=== PATIENT | male | born 1945 | race Caucasian/White ===

== ENCOUNTER 2016-10-28 06:19 | Day surgery (SDC) | payer MEDICARE, BC ==
--- NOTE | 2016-10-14 13:01 | HP ---
HISTORY AND PHYSICAL: DATE OF ADMISSION/SURGERY: 10/28/16 DATE OF OFFICE VISIT: 10/14/16 CHIEF COMPLAINT: Blurring of vision, difficult driving at night. HISTORY OF PRESENT ILLNESS: This 71-year-old white male who has been diagnosed with bilateral cataracts with Dr. Fuad Hickey. He is scheduled at [facility] for extraction of right cataract under local anesthesia with monitored anesthesia care on October 28 and the left eye will be done on November 04. PAST MEDICAL HISTORY: The patient is under the care of Dr. Norm Krishna. He has a history of hypertension and hyperlipidemia. He is also followed by Dr. Shah and Dr. Lopze for prostate cancer, had surgery in 2007, robotic laparoscopic prostatectomy, and had a biochemical recurrence in 2013 and went under radiation treatment. CURRENT MEDICATIONS: 1. Lisinopril 40 mg daily. 2. Lipitor 20 mg one and a half tablets daily for a total dose of 30 mg. 3. Amlodipine 10 mg daily. 4. Metoprolol ER 50 mg one and a half tablets daily. 5. He also uses Viagra p.r.n. ALLERGIES: HYDROCHLOROTHIAZIDE caused a rash in the past. SOCIAL HISTORY: The patient lives in the [facility]. He is a former smoker 40 - pack year history, quit about 10 years ago. Alcohol, he classifies himself as a heavy drinker. He stopped about 2-1/2 weeks ago, currently seeing a counselor and he has joined [employer]. He works out at [employer] with a animal trainer about twice a week; otherwise, he is quite physically active. REVIEW OF SYSTEMS: He wears glasses, has decreased hearing. He says that ankle edema symptoms were only present dating back to April of last year and it is no longer an issue. He does have frequent urination with some incontinence leaking at times. He gets up 3 times a night to urinate. He has been followed by a senior compliance analyst for minor skin issues. The patient denies any dyspnea, cough, chest pain, palpitations or edema symptoms. FAMILY HISTORY: Mother - longevity, lived to over 100, she was healthy. Father had bipolar, long-term smoker, was on oxygen therapy and had a sudden at age 75, cause unknown. Brother - colon polyps, bladder cancer and prostate CA. PHYSICAL EXAMINATION GENERAL: This 71-year-old white male is alert, pleasant, and cooperative, no acute distress at the present time. VITAL SIGNS: Height 6 feet, weight 207. Blood pressure 136/72, pulse 64, regular. HEENT: Eyes not examined. Patient has bilateral hearing aids in place, removed for examination now. Teeth are in excellent repair, one molar is missing. Tongue in midline. Pharynx is clear. NECK: Supple. Good range of motion. No adenopathy. Thyroid benign. BACK: Normal curvature. No tenderness noted of the spine or CVA areas. LUNGS: Clear. HEART: Rhythm is regular. Apical pulse 64 beats per minute. No murmurs. EKG shows normal sinus rhythm within normal limits. ABDOMEN: Abdomen is flat. Active bowel sounds. Abdomen is soft, nontender. No obvious masses or organomegaly. EXTREMITIES: The patient ambulates independently. No assisting aids. Good range of motion of all 4 extremities. No edema. No cyanosis. No skin lesions noted. IMPRESSION: The patient is medically stable and cleared for his surgery with Dr. Fuad Hickey at the [facility] for bilateral cataracts. VLADIMIR SANDS NP CC: Fuad Hickey MD; [facility]* [id number]/[facility] #: [id number] MTDD
[~2016-10-28 06:19] MED LIST: Acetaminophen TAB* 325 MG PO PRN; Buffered Lidocaine 1% SYRIN* 5 ML/SYR SYRINGE INTRADERM ONE
[2016-10-28] MEDS ORDERED: Midazolam* 1 MG/ML 2 ML VIAL (2 MG) ONE (07:41)
[2016-10-28 08:19] VITALS: BP 130/77
--- NOTE | 2016-10-28 09:59 | OP ---
OPERATIVE NOTE: DATE OF OPERATION: 10/28/16 DATE OF : 41 SURGEON: Fuad Hickey MD PREOPERATIVE DIAGNOSIS: Cataract, right eye. POSTOPERATIVE DIAGNOSIS: Cataract, right eye. OPERATIVE PROCEDURE: Phacoemulsification, right eye with IOL. PROCEDURE: The patient was brought to the operating room after being given 1/2% Alcaine with epinep hrine drops in the preoperative area. The eye was prepped and draped in the usual sterile fashion. Sterile drape and eyelid speculum were placed. Again, topical 1/2% Alcaine with epinephrine was gi matthias. A paracentesis incision was made at the 9 o'clock position with the No.75 blade. Clear cornea incision 2.2 x 2.2-mm was created at the 12 o'clock position starting at the anterior limbus using the 2.2-mm keratome. The anterior chamber was irrigated with 0.4 mL of 1% non-preservative intracam eral lidocaine and filled with DisCoVisc. A capsulorrhexis was completed using the cystotome and joseph e Utrata forceps. Hydrodissection was performed with balanced salt solution. The lens nucleus was r emoved with the Phacoemulsification handpiece without incident. Cortex was removed with the irrigat ion-aspiration handpiece. The capsular bag was re-inflated using DisCoVisc and an [id number] implant was inserted with the shooter. The irrigation-aspiration handpiece was used to remove all residual DisCoVisc. The eye was refilled with balanced salt solution and the wound checked and found to be watertight. Topical Maxitrol drops were given. [id number]/[facility] #: [id number]
[2016-10-28] MEDS ORDERED: acetaZOLAMIDE TAB* 250 MG ONE (12:07)
[2016-10-28] MEDS ORDERED: Lidocaine 1% MPF* 2 ML VIAL ONE (12:07)
[2016-10-28] MEDS ORDERED: Lidocaine 2% EPI 1:200000 MPF* 20 ML VIAL ONE (12:07)
[2016-10-28] MEDS ORDERED: Proparacaine 0.5% OPHTH.SOL* 15 ML BTL ONE (12:07)
[2016-10-28] MEDS ORDERED: Cyclopentolate 1% OPTH.SOL* 2 ML BTL ONE (12:07)
[2016-10-28] MEDS ORDERED: Povidone Iodine 5% OPTH* 30 ML BTL ONE (12:07)
[2016-10-28] MEDS ORDERED: Neomycin/Polymy/Dex OPTH.SUSP* MAXITROL 0.1% 5 ML ONE (12:07)
[2016-10-28] MEDS ORDERED: Phenylephrine 2.5% OPTH.SOL* 2 ML BTL ONE (12:07)
[2016-10-28] MEDS ORDERED: Flurbiprofen 0.03% OPTH.SOL* 2.5 ML BTL ONE (12:07)
== END 2016-10-28 08:20 | disposition home or self-care (01) ==
LOC: OREAST 06:19
PROVIDERS: ATTEND Specialist
DX: H25.11 Age-related nuclear cataract, right eye (principal); I10 Essential (primary) hypertension; Z87.891 Personal history of nicotine dependence
CPT/HCPCS: A9270-GY; J2250; V2632

== ENCOUNTER 2016-11-04 07:17 | Day surgery (SDC) | payer MEDICARE, OTHER ==
[~2016-11-04 07:17] MED LIST changes: +Buffered Lidocaine 0.9% SYRIN* 5 ML/SYR SYRINGE INTRADERM ONE; +Buffered Lidocaine 0.9% SYRIN* 5 ML/SYR SYRINGE ONE; -Buffered Lidocaine 1% SYRIN* 5 ML/SYR SYRINGE INTRADERM ONE; +Cyclopentolate 1% OPTH.SOL* 2 ML BTL ONE; +Flurbiprofen 0.03% OPTH.SOL* 2.5 ML BTL ONE; +Lidocaine 1% MPF* 2 ML VIAL ONE; +Lidocaine 2% EPI 1:200000 MPF* 20 ML VIAL ONE; +Neomycin/Polymy/Dex OPTH.SUSP* MAXITROL 0.1% 5 ML ONE; +Phenylephrine 2.5% OPTH.SOL* 2 ML BTL ONE; +Povidone Iodine 5% OPTH* 30 ML BTL ONE; +Proparacaine 0.5% OPHTH.SOL* 15 ML BTL ONE; +acetaZOLAMIDE TAB* 250 MG ONE
[2016-11-04] MEDS ORDERED: Midazolam* 1 MG/ML 2 ML VIAL (2 MG) ONE ×2 (08:49→08:54)
[2016-11-04 09:25] VITALS: BP 119/71
--- NOTE | 2016-11-04 09:32 | OP ---
DATE OF OPERATION: 11/04/2016 [facility] DATE OF : 1945. SURGEON: Fuad Hickey M.D. PREOPERATIVE DIAGNOSIS: Cataract left eye. POSTOPERATIVE DIAGNOSIS: Cataract left eye. OPERATIVE PROCEDURE: Phacoemulsification left eye with IOL. DESCRIPTION OF PROCEDURE: The patient was brought to the operating room after being given 1/2% Alcaine with epinephrine drops in the preoperative area. The eye was prepped and draped in the usual sterile fashion. Sterile drape and eyelid speculum were placed. Again, topical 1/2% Alcaine with epinephrine was given. A paracentesis incision was made at the 3 o'clock position with the No.75 blade. Clear cornea incision 2.2 x 2.2-mm was created at the 6 o'clock position starting at the anterior limbus using the 2.2-mm keratome. The anterior chamber was irrigated with 0.4 mL of 1% non-preservative intracameral lidocaine and filled with DisCoVisc. A capsulorrhexis was completed using the cystotome and the Utrata forceps. Hydrodissection was performed with balanced salt solution. The lens nucleus was removed with the Phacoemulsification handpiece without incident. Cortex was removed with the irrigation-aspiration handpiece. The capsular bag was re-inflated using DisCoVisc and an [id number] implant was inserted with the shooter. The irrigation-aspiration handpiece was used to remove all residual DisCoVisc. The eye was refilled with balanced salt solution and the wound checked and found to be watertight. Topical Maxitrol drops were given. [id number]/[facility] #: [id number] [facility]
== END 2016-11-04 09:40 | disposition home or self-care (01) ==
LOC: OREAST 07:17
PROVIDERS: ATTEND Specialist
DX: H25.12 Age-related nuclear cataract, left eye (principal); H40.053 Ocular hypertension, bilateral; I10 Essential (primary) hypertension; Z87.891 Personal history of nicotine dependence; Z85.46 Personal history of malignant neoplasm of prostate
CPT/HCPCS: A9270-GY; J2250; V2632

== ENCOUNTER 2017-10-04 09:53 | Day surgery (SDC) | payer MEDICARE, BC ==
[~2017-10-04 09:53] MED LIST changes: -Acetaminophen TAB* 325 MG PO PRN; -Buffered Lidocaine 0.9% SYRIN* 5 ML/SYR SYRINGE ONE; -Cyclopentolate 1% OPTH.SOL* 2 ML BTL ONE; -Flurbiprofen 0.03% OPTH.SOL* 2.5 ML BTL ONE; -Lidocaine 1% MPF* 2 ML VIAL ONE; -Lidocaine 2% EPI 1:200000 MPF* 20 ML VIAL ONE; -Neomycin/Polymy/Dex OPTH.SUSP* MAXITROL 0.1% 5 ML ONE; -Phenylephrine 2.5% OPTH.SOL* 2 ML BTL ONE; -Povidone Iodine 5% OPTH* 30 ML BTL ONE; -Proparacaine 0.5% OPHTH.SOL* 15 ML BTL ONE; -acetaZOLAMIDE TAB* 250 MG ONE
[2017-10-04] MEDS ORDERED: fentaNYL* 50 MCG/ML 2 ML VIAL (100 MCG VIAL) ONE (11:13)
[2017-10-04] MEDS ORDERED: Midazolam* 1 MG/ML 2 ML VIAL (2 MG) ONE (11:13)
[2017-10-04] MEDS ORDERED: Bupivacaine 0.25% SDV* 30 ML ONE (11:52)
[2017-10-04] MEDS ORDERED: Naloxone* 0.4 MG/ML 1 ML VIAL IV PRN (12:10)
[2017-10-04 13:10] VITALS: BP 111/86
--- NOTE | 2017-10-05 03:54 | OP ---
DATE OF OPERATION: 10/04/17 - [facility] DATE OF : 41 SURGEON: Eliu Chavez MD RASPER MACHINE OPERATOR: WENDY Farias ANESTHESIOLOGIST: Dr. Colmenares. ANESTHESIA: Local MAC. PRE-OP DIAGNOSIS: Right carpal tunnel syndrome. POST-OP DIAGNOSIS: Right carpal tunnel syndrome. OPERATIVE PROCEDURE: Right open carpal tunnel release. INDICATIONS: Surinder has progressive right carpal tunnel syndrome. We talked about risks and benefits. He wanted to proceed. ESTIMATED BLOOD LOSS: 2 mL. COMPLICATIONS: None. FINDINGS: As expected. DESCRIPTION OF PROCEDURE: Surinder was seen in the preoperative holding area. The correct side, site and the procedure were identified. We came back to the operating room. The arm was prepped and draped in usual fashion. I had had anesthetized the operative area with 0.25% plain Marcaine. The arm was exsanguinated with the Esmarch and the tourniquet was inflated to 250 mmHg. I made a 2 to 3 cm longitudinal incision in the standard location for an open carpal tunnel release. Dissection was carried down through the subcutaneous tissue and palmar fascia. Transverse carpal ligament was released off the radial aspect of the hook of the hamate. The release was completed distally and proximally I released the fascia and subcutaneous tissue and retracted this volarly and ulnarly and then direct visualization with the Saima retractor in place, I released the remainder of the transverse carpal ligament in distal antebrachial fascia to level several centimeters proximal to the wrist flexion crease. The release at this point was complete. Everything was looking good. So we irrigated out the wound. Skin was closed with 4-0 nylon suture. Wounds were dressed appropriately and he was taken to recovery room in stable condition. [id number]/[facility] #: [id number] MTDD
== END 2017-10-04 13:27 | disposition home or self-care (01) ==
LOC: OR 09:53
PROVIDERS: ATTEND Orthopaedic Surgery Hand Surgery
DX: G56.01 Carpal tunnel syndrome, right upper limb (principal); Z85.46 Personal history of malignant neoplasm of prostate; I10 Essential (primary) hypertension; E78.2 Mixed hyperlipidemia; R35.0 Frequency of micturition
CPT/HCPCS: J2250; J3010

== ENCOUNTER 2018-01-06 06:19 | Day surgery (SDC) | payer MEDICARE, BC ==
[2018-01-06] MEDS ORDERED: Lidocaine 2% PF * 5 ML VIAL ONE (07:11)
[2018-01-06] MEDS ORDERED: Propofol* 10 MG/ML 20 ML BTL IV PUSH ONE (07:11)
[2018-01-06] MEDS ORDERED: fentaNYL* 50 MCG/ML 2 ML VIAL (100 MCG VIAL) ONE (07:11)
[2018-01-06] MEDS ORDERED: Bupivacaine 0.5% PF 10 ML VIAL INJ ONE (07:20)
[2018-01-06 08:24] VITALS: BP 136/87
[2018-01-06] MEDS ORDERED: Naloxone* 0.4 MG/ML 1 ML VIAL IV PRN (09:41)
--- NOTE | 2018-01-06 22:04 | OP ---
DATE OF OPERATION: 01/06/18 [facility] DATE OF : 41 SURGEON: Eliu Chavez MD CLINICAL ASSOCIATE: WENDY Farias ANESTHESIOLOGIST: Dr. Colmenares. ANESTHESIA: Local MAC. PRE-OP DIAGNOSIS: Left carpal tunnel syndrome. POST-OP DIAGNOSIS: Left carpal tunnel syndrome. OPERATIVE PROCEDURE: Left open carpal tunnel release. INDICATIONS: Surinder is a 72-year-old. He has carpal tunnel syndrome. It has been progressive. We talked about treatment options. He wanted to proceed with the release. We did discuss risks and benefits. ESTIMATED BLOOD LOSS: 1 mL. COMPLICATIONS: None. FINDINGS: As expected. DESCRIPTION OF PROCEDURE: Surinder was seen in the preoperative holding area and the correct side, site, and procedure were identified. We came back to the operating room. He got some anesthesia. I infiltrated the operative area with 0.25% plain Marcaine. The arm was prepped and draped in the usual fashion and a time-out was performed. The arm was exsanguinated with the Esmarch and the tourniquet inflated to 250 mmHg. I made a 2 to 3 cm longitudinal incision in the proximal palm in the typical location for an open carpal tunnel release. Dissection was carried down through the subcutaneous tissue and palmar fascia. Once all the superficial release was performed, the transverse carpal ligament was released just off the radial aspect of the hook of the hamate. Release was completed distally and then proximally I released the fascia and subcutaneous tissue and retracted this ulnarly and volarly and then under direct visualization, the remainder of the transverse carpal ligament and distal antebrachial fascia was released with the tenotomy scissors. Once the decompression was checked and everything was fully released, we irrigated out the wound. The skin was then closed with 4-0 nylon suture. The wounds were dressed. He was woken up and taken to recovery room in stable condition. [id number]/[facility] #: [id number] [facility]
== END 2018-01-06 08:30 | disposition home or self-care (01) ==
LOC: OREAST 06:19
PROVIDERS: ATTEND Orthopaedic Surgery Hand Surgery
DX: G56.02 Carpal tunnel syndrome, left upper limb (principal); I10 Essential (primary) hypertension; Z85.46 Personal history of malignant neoplasm of prostate; F10.21 Alcohol dependence, in remission; E78.2 Mixed hyperlipidemia; Z87.891 Personal history of nicotine dependence
CPT/HCPCS: J2704; J3010